=== PATIENT | female | born 1995 | race African-American/Black ===

== ENCOUNTER 2017-03-24 15:36 | Emergency (ER) | payer SELFPAY ==
--- NOTE | 2017-03-24 15:55 | ER Document Report ---
ED General - General Chief Complaint: Vaginal Bleeding Stated Complaint: ABDOMINAL PAIN,VAGINAL BLEEDING Time Seen by Provider: 03/24/17 15:54 Mode of Arrival: Ambulatory Information source: Patient Notes: 21-year-old female 1 para 0 approximately for 5 weeks presents with complaints of vaginal spotting with mild cramping. pt has been taking prenatals, denies any fevers or chills ,denies any large clots TRAVEL OUTSIDE OF THE [place] IN LAST 30 DAYS: No - HPI Onset: Yesterday Onset/Duration: Sudden Quality of pain: Cramping Severity: Mild Pain Level: 1 Associated symptoms: None Exacerbated by: Denies Relieved by: Denies Similar symptoms previously: No Recently seen / treated by doctor: No - Related Data Allergies/Adverse Reactions: No Known Allergies Allergy (Unverified 03/24/17 15:43) Past Medical History - Social History Smoking Status: Never Smoker Cigarette use (# per day): No Chew tobacco use (# tins/day): No Smoking Education Provided: No Family History: Reviewed & Not Pertinent Renal/ Medical History: Denies: Hx Peritoneal Dialysis Review of Systems - Review of Systems Notes: REVIEW OF SYSTEMS: CONSTITUTIONAL : Denies fever, chills, or sweats. Denies recent illness. EENT: Denies eye, ear, throat, or mouth pain or symptoms. Denies nasal or sinus congestion or discharge. Denies throat, tongue, or mouth swelling or difficulty swallowing. CARDIOVASCULAR: Denies chest pain. Denies palpitations or racing or irregular heart beat. Denies ankle edema. RESPIRATORY: Denies cough, cold, or chest congestion. Denies shortness of breath, difficulty breathing, or wheezing. GASTROINTESTINAL: Denies abdominal pain or distention. Denies nausea, vomiting , or diarrhea. Denies blood in vomitus, stools, or per rectum. Denies black, tarry stools. Denies constipation. GENITOURINARY: Denies difficulty urinating, painful urination, burning, frequency, blood in urine, or discharge. FEMALE GENITOURINARY: admits to vaginal bleeding MUSCULOSKELETAL: Denies back or neck pain or stiffness. Denies joint pain or swelling. SKIN: Denies rash, lesions or sores. HEMATOLOGIC : Denies easy bruising or bleeding. LYMPHATIC: Denies swollen, enlarged glands. NEUROLOGICAL: Denies confusion or altered mental status. Denies passing out or loss of consciousness. Denies dizziness or lightheadedness. Denies headache. Denies weakness or paralysis or loss of use of either side. Denies problems with gait or speech. Denies sensory loss, numbness, or tingling. Denies seizures. PSYCHIATRIC: Denies anxiety or stress. Denies depression, suicidal ideation, or homicidal ideation. ALL OTHER SYSTEMS REVIEWED AND NEGATIVE. PHYSICAL EXAMINATION: GENERAL: Well-appearing, well-nourished and in no acute distress. HEAD: Atraumatic, normocephalic. EYES: Pupils equal round and reactive to light, extraocular movements intact, conjunctiva are normal. ENT: Nares patent, oropharynx clear without exudates. Moist mucous membranes. NECK: Normal range of motion, supple without lymphadenopathy LUNGS: Breath sounds clear to auscultation bilaterally and equal. No wheezes rales or rhonchi. HEART: Regular rate and rhythm without murmurs ABDOMEN: Soft, nontender, nondistended abdomen. No guarding, no rebound. No masses appreciated. Female : deferred Musculoskeletal: Normal range of motion, no pitting or edema. No cyanosis. NEUROLOGICAL: Cranial nerves grossly intact. Normal speech, normal gait. Normal sensory, motor exams PSYCH: Normal mood, normal affect. SKIN: Warm, Dry, normal turgor, no rashes or lesions noted. Dictation was performed using [employer] voice recognition software Physical Exam - Vital signs Vitals: Temp Pulse Resp BP Pulse Ox 98.3 F 74 16 108/72 98 03/24/17 15:43 03/24/17 15:43 03/24/17 15:43 03/24/17 15:43 03/24/17 15:43 Course - Re-evaluation Re-evalutation: 03/24/17 16:06 Physical examination was quite benign, patient defers a pelvic, lab work ultrasound pending 03/24/17 17:05 pts hcg is negative, she is not . 03/24/17 18:17 Ultrasound noted no acute abnormality patient otherwise is stable for discharge After performing a Medical Screening Examination, I estimate there is LOW risk for ACUTE APPENDICITIS, BOWEL OBSTRUCTION, ACUTE CHOLECYSTITIS, PERFORATED DIVERTICULITIS, INCARCERATED HERNIA, PANCREATITIS, PELVIC INFLAMMATORY DISEASE, PERFORATED ULCER, ECTOPIC , or TUBO-OVARIAN ABSCESS, thus I consider the discharge disposition reasonable. Also, there is no evidence or peritonitis , sepsis, or toxicity. I have reevaluated this patient multiple times and no significant life threatening changes are noted. The patient and I have discussed the diagnosis and risks, and we agree with discharging home with close follow-up with the understanding that symptoms and presentations can change. We also discussed returning to the Emergency Department immediately if new or worsening symptoms occur. We have discussed the symptoms which are most concerning (e.g., bloody stool, fever, changing or worsening pain, vomiting) that necessitate immediate return. - Vital Signs Vital signs: Temp Pulse Resp BP Pulse Ox 98.3 F 74 16 108/72 98 03/24/17 15:43 03/24/17 15:43 03/24/17 15:43 03/24/17 15:43 03/24/17 15:43 - Laboratory Result Diagrams: 03/24/17 16:07 03/24/17 16:07 - Diagnostic Test Radiology reviewed: Image reviewed, Reports reviewed - no acute abnormality Discharge - Discharge Clinical Impression: Vaginal bleeding, Pelvic pain Condition: Stable Disposition: HOME, SELF-CARE Instructions: Pelvic Pain ([facility]) Additional Instructions: Follow up with your physician tomorrow for further care or return to the ED IMMEDIATELY if symptoms worsen or new concerns occur. If you cannot afford to follow up with your primary care physician a list of low cost clinics have been provided at the end of your discharge papers as well.
[2017-03-24 16:23] LABS: HEMOGLOBIN 12.5 g/dL (12.0-15.5); HGB HCT DIFFERENCE 0.5; MEAN CORPUSCULAR HEMOGLOBIN 29.9 pg (27.0-33.4); MEAN CORPUSCULAR HGB CONC 33.9 g/dL (32.0-36.0); MEAN CORPUSCULAR VOLUME 88 fl (80-97); RED CELL DISTRIBUTION WIDTH 13.2 % (11.5-14.0); WHITE BLOOD COUNT 5.2 10^3/uL (4.0-10.5)
[2017-03-24 16:42] LABS: ALANINE AMINOTRANSFERASE 23 U/L (5-35); ALBUMIN 4.2 g/dL (3.7-5.6); ALKALINE PHOSPHATASE 87 U/L (50-135); ANION GAP 12 (5-19); ASPARTATE AMINO TRANSFERASE 18 U/L (5-30); BILIRUBIN,DIRECT 0.3 mg/dL (0.0-0.4); BILIRUBIN,TOTAL 0.8 mg/dL (0.2-1.3); BLOOD UREA NITROGEN 10 mg/dL (7-20); CARBON DIOXIDE 25 mmol/L (22-30); CHLORIDE 103 mmol/L (98-107); CREATININE RESULT 0.71 mg/dL (0.52-1.25); GLUCOSE 84 mg/dL (75-110); POTASSIUM 4.1 mmol/L (3.6-5.0); SODIUM 139.6 mmol/L (137-145); TOTAL PROTEIN 7.4 g/dL (6.3-8.2)
[2017-03-24 16:45] LABS: BASOPHILS % (MANUAL) 0 % (0-2); EOSINOPHILS % (MANUAL) 0 % (0-6); LYMPHOCYTES % (MANUAL) 24 % (13-45); TOTAL CELLS COUNTED 100
[2017-03-24 16:46] LABS: RBC MORPHOLOGY COMMENT NORMO-CYTIC/CHROMIC
--- NOTE | 2017-03-24 18:03 | RADIOLOGY REPORT (SQ) ---
EXAM DESCRIPTION: U/S NON-OB PELVIS TV W/O DOP COMPLETED DATE/TIME: 03/24/2017 5:10 pm REASON FOR STUDY: vag bleed COMPARISON: None. TECHNIQUE: Dynamic and static grayscale images acquired of the pelvis via transvaginal approach and recorded on PACS. Additional selected color Doppler and spectral images recorded. LIMITATIONS: None. FINDINGS: UTERUS: Contour normal. No mass. ENDOMETRIAL STRIPE: No focal or generalized thickening. No masses. CERVIX: No nabothian cysts. RIGHT OVARY: No abnormal masses. RIGHT OVARY DOPPLER: Normal arterial vascular flow without evidence for torsion. LEFT OVARY: No abnormal masses. LEFT OVARY DOPPLER: Normal arterial vascular flow without evidence for torsion. FREE FLUID: None noted. OTHER: No other significant finding. MEASUREMENTS: UTERUS: 8.2 x 6.0 x 4.3 cm ENDOMETRIAL STRIPE: 9.6 mm RIGHT OVARY: 2.9 x 2.7 x 2.3 cm LEFT OVARY: 2.4 x 2.6 x 1.5 cm IMPRESSION: NORMAL TRANSVAGINAL PELVIC ULTRASOUND. TECHNICAL DOCUMENTATION: JOB ID: [id number] 9501[employer]- All Rights Reserved
[2017-03-24 18:28] VITALS: BP 119/77
== END 2017-03-24 18:20 | disposition home or self-care (01) ==
LOC: ER 15:36
DX: N93.8 Other specified abnormal uterine and vaginal bleeding (principal); R10.2 Pelvic and perineal pain; Z32.02 Encounter for pregnancy test, result negative
CPT/HCPCS: 36415; 76830; 80053; 84702; 85025; 86900; 86901; 99284

== ENCOUNTER 2017-03-25 02:13 | Emergency (ER) | payer BC ==
[2017-03-25 02:23] VITALS: BP 116/76
--- NOTE | 2017-03-25 03:59 | ER Document Report ---
ED GI/ - General Mode of Arrival: Ambulatory Information source: Patient TRAVEL OUTSIDE OF THE [place] IN LAST 30 DAYS: No - General Chief Complaint: Abdominal Pain Stated Complaint: ABDOMINAL PAIN Time Seen by Provider: 03/25/17 03:39 Notes: Patient is a 21 year old female presenting to the emergency department for vaginal bleeding and pelvic pain. Patient states her bleeding and cramping was onset yesterday at 16:00. Patient was seen on 03/24/2017 and discharged at 18: 20 for the same. At this visit the patient had a negative HCG quant. Patient states she had a positive [facility] on [facility]. Patient continues to have abdominal cramps which she states are worse than her normal menstrual period cramps. Patient's last menstrual period was . Patient has no known drug allergies. (OPAL LAW) - Related Data Allergies/Adverse Reactions: No Known Allergies Allergy (Verified 03/25/17 02:17) Past Medical History - General Information source: Patient - Social History Smoking Status: Never Smoker Cigarette use (# per day): No Chew tobacco use (# tins/day): No Smoking Education Provided: No Frequency of alcohol use: None Drug Abuse: None Family History: None Patient has suicidal ideation: No Patient has homicidal ideation: No - Medical History Medical History: Negative Surgical Hx: Negative Review of Systems - Review of Systems Constitutional: No symptoms reported EENT: No symptoms reported Cardiovascular: No symptoms reported Respiratory: No symptoms reported Gastrointestinal: See HPI, Abdominal pain Genitourinary: No symptoms reported Female Genitourinary: See HPI, Last menstrual period - 02/16/2017, Vaginal bleeding Musculoskeletal: No symptoms reported Skin: No symptoms reported Hematologic/Lymphatic: No symptoms reported Neurological/Psychological: No symptoms reported -: Yes All other systems reviewed and negative Physical Exam - Vital signs Interpretation: Normal - Vital signs Vitals: Temp Pulse Resp BP Pulse Ox 98.8 F 75 16 116/76 98 03/25/17 02:17 03/25/17 02:17 03/25/17 02:17 03/25/17 02:03/25/17 02:17 - Notes Notes: GENERAL: Alert, interacts well. No acute distress. HEAD: Normocephalic, atraumatic. EYES: Appear normal. Pupils equal, round, and reactive to light. ENT: Moist mucus membranes, tongue midline. NECK: Full range of motion. Supple. Trachea midline. LUNGS: Clear to auscultation bilaterally, no wheezes, rales, or rhonchi. No respiratory distress. HEART: Regular rate and rhythm. No murmurs, gallops, or rubs. ABDOMEN: Soft, non-tender. Non-distended. Normal bowel sounds. EXTREMITIES: Moves all 4 extremities spontaneously. Normal strength. No edema. NEUROLOGICAL: Alert and oriented x3. Normal speech. No focal neurological deficits. GCS 15. PSYCH: Normal affect, normal mood. SKIN: Warm, dry, normal turgor. No rashes or lesions noted. (OPAL LAW) - Vital Signs Vital signs: Temp Pulse Resp BP Pulse Ox 98.8 F 75 16 116/76 98 03/25/17 02:17 03/25/17 02:17 03/25/17 02:17 03/25/17 02:17 03/25/17 02:17 Discharge - Discharge Clinical Impression: Pelvic pain, Vaginal bleeding Disposition: HOME, SELF-CARE Additional Instructions: Pelvic Pain: There are many causes of pain in the pelvic area. The cause could be the tubes, ovaries, uterus, intestines, appendix, pelvic muscles and connective tissue, or the urinary tract. The cause of your pelvic pain is not clear. However, it seems safe to treat you outside the hospital. If the pain sounds like a temporary problem, we sometimes wait to see if it goes away. Other patients may need additional tests, such as pelvic ultrasound or cultures. Conditions may change. Call us or come back for reexamination if any problems occur, such as: (1) Pain that becomes more severe, steady, or becomes concentrated in one specific area. Also, pain that is more severe with movement or coughing. (2) Vomiting that persists or becomes more frequent. (3) Blood in the vomitus, urine, or bowel movements. Blood in the stool may have a tarry or black appearance. (4) Shaking chills or fever greater than 100 degrees. (5) The abdomen becomes more distended or swollen. //////////////////////////////////////////////////////////////////////////////// //////////////////////////////////////////////////////////////////////////////// //////////////// Your test from yesterday showed no hormone level detected. Your ultrasound showed normal ovaries, no , and in endometrial stripe of 9.6 mm, this is consistent with a menstrual period. A polymerase chain reaction test will be done on the urine that was collected looking for infections that may be contributing to your discomfort. If there are any positive results, you will be contacted. For now you should take Tylenol and ibuprofen or Aleve for your discomfort. [facility] for recheck if not improving. Referrals: [facility] [Provider Group] - Follow up as needed Scribe Attestation: 03/25/17 04:19 I personally performed the services described in the documentation, reviewed and edited the documentation which was dictated to the scribe in my presence, and it accurately records my words and actions. (CRISTINA HERNANDEZ) Scribe Documentation - Scribe Written by Scribe:: Opal Law, Cay[place]ismael 03/25/2017 16:30 acting as scribe for :: Sravani
[2017-03-25] MEDS ORDERED: KETOROLAC TROMETHAMINE INJ/PF 30 MG/1 ML SDV IV ONE (04:12)
[2017-03-25 06:35] LABS: CHLAM PCR NOT DETECTED (NOT DETECT)
== END 2017-03-25 04:52 | disposition home or self-care (01) ==
LOC: ER 02:13
DX: N93.8 Other specified abnormal uterine and vaginal bleeding (principal); R10.2 Pelvic and perineal pain
CPT/HCPCS: 99283; 96374; 87491; 87591; J1885

== ENCOUNTER 2017-07-23 19:36 | Emergency (ER) | payer SELFPAY ==
[2017-07-23] MEDS ORDERED: MAG HYDROX/AL HYDROX/SIMETH SUSP 30 ML UDCUP PO ONE (23:21)
[2017-07-23] MEDS ORDERED: LIDOCAINE 2% VISCOUS SOLN 20 ML UDCUP PO ONE (23:21)
[2017-07-23] MEDS ORDERED: METOCLOPRAMIDE HCL ORAL SOLN 10 MG/10 ML UDCUP PO ONE (23:21)
--- NOTE | 2017-07-23 23:22 | ER Document Report ---
ED Medical Screen (RME) - General Chief Complaint: Chest Pain Stated Complaint: CHEST PAIN Time Seen by Provider: 07/23/17 23:19 Notes: Patient is a 22-year-old female that comes emergency department for chief complaint of chest pain. Symptoms started about 5 hours ago while she was lying down. She states it feels sharp, she can feel it over the left side of her mid chest, she states that she actually gets these symptoms intermittently. She is unsure if she was short of breath. She states she feels a little bit nauseated with it. She smokes occasionally. No oral contraceptive. No daily medications. No trauma. TRAVEL OUTSIDE OF THE [place] IN LAST 30 DAYS: No - Related Data Allergies/Adverse Reactions: No Known Allergies Allergy (Verified 03/25/17 02:17) Past Medical History - Social History Chew tobacco use (# tins/day): No Frequency of alcohol use: Social Drug Abuse: None Renal/ Medical History: Denies: Hx Peritoneal Dialysis Physical Exam - Vital signs Vitals: Temp Pulse Resp BP Pulse Ox 98.5 F 90 20 113/63 100 07/23/17 20:20 07/23/17 20:20 07/23/17 20:20 07/23/17 20:20 07/23/17 20:20 - Respiratory Respiratory status: No respiratory distress Breath sounds: Normal. No: Wheezing Course - Vital Signs Vital signs: Temp Pulse Resp BP Pulse Ox 98.3 F 64 18 102/54 L 100 07/23/17 23:10 07/23/17 23:10 07/23/17 23:10 07/23/17 23:10 07/23/17 23:10
--- NOTE | 2017-07-24 00:44 | RADIOLOGY REPORT (SQ) ---
EXAM DESCRIPTION: CHEST PA/LAT CLINICAL HISTORY: chest pain COMPARISON: None. FINDINGS: Frontal and lateral views of the chest. The cardiomediastinal silhouette has normal size and contour. No consolidation, pneumothorax, or pleural effusion. No displaced rib fractures identified. Upper abdominal soft tissues are unremarkable. IMPRESSION: 1. No acute pulmonary process identified.
--- NOTE | 2017-07-24 00:54 | ER Document Report ---
ED General - General Chief Complaint: Chest Pain Stated Complaint: CHEST PAIN Time Seen by Provider: 07/23/17 23:19 Mode of Arrival: Ambulatory Information source: Patient Notes: This is a 22-year-old female presents to the emergency room with on and off chest pain associated with palpitations. Patient states she has experienced this on and off for the past several years. She had an episode tonight. She denies any significant shortness of breath. She does have a family history of cystic fibrosis and sarcoidosis. She denies any allergies. She is not on any medicines. She does smoke a half pack per day TRAVEL OUTSIDE OF THE [place] IN LAST 30 DAYS: No - HPI Onset: Other - On and off for several years Onset/Duration: Gradual Quality of pain: No pain Severity: None Pain Level: Denies Associated symptoms: Other - Palpitations. denies: Chest pain, Fever, Shortness of breath Exacerbated by: Denies Relieved by: Denies Similar symptoms previously: Yes Recently seen / treated by doctor: No - Related Data Allergies/Adverse Reactions: No Known Allergies Allergy (Verified 03/25/17 02:17) Past Medical History - General Information source: Patient - Social History Smoking Status: Current Every Day Smoker Cigarette use (# per day): Yes - Half a pack per day Chew tobacco use (# tins/day): No Smoking Education Provided: Yes Frequency of alcohol use: Social Drug Abuse: None Lives with: Family Family History: None Patient has suicidal ideation: No Patient has homicidal ideation: No - Medical History Medical History: Negative Renal/ Medical History: Denies: Hx Peritoneal Dialysis Surgical Hx: Negative Review of Systems - Review of Systems Constitutional: denies: Chills, Fever EENT: No symptoms reported Cardiovascular: See HPI Respiratory: No symptoms reported Gastrointestinal: No symptoms reported Genitourinary: No symptoms reported Female Genitourinary: No symptoms reported Musculoskeletal: No symptoms reported Skin: No symptoms reported Hematologic/Lymphatic: No symptoms reported Neurological/Psychological: No symptoms reported Physical Exam - Vital signs Vitals: Temp Pulse Resp BP Pulse Ox 98.5 F 90 20 113/63 100 07/23/17 20:20 07/23/17 20:20 07/23/17 20:20 07/23/17 20:20 07/23/17 20:20 Notes: Physical exam: GENERAL: 3-year-old female, alert and oriented 3, no acute distress HEAD: Atraumatic, normocephalic. EYES: Pupils equal round and reactive to light, extraocular movements intact, sclera anicteric, conjunctiva are normal. ENT: TMs normal, nares patent, oropharynx clear without exudates. Moist mucous membranes. NECK: Normal range of motion, supple without obvious mass or JVD. LUNGS: Breath sounds clear to auscultation bilaterally and equal. No wheezes rales or rhonchi. HEART: Regular rate and rhythm without murmurs, rubs or gallops. ABDOMEN: Soft, normoactive bowel sounds. No tenderness to palpation. No guarding, no rebound. No masses appreciated. EXTREMITIES: Normal range of motion, no pitting or edema. No clubbing or cyanosis. NEUROLOGICAL: Cranial nerves II through XII grossly intact. Normal speech, moving all extremities. PSYCH: Normal mood, normal affect. SKIN: Warm, Dry, normal turgor, no rashes or lesions noted. Course - Vital Signs Vital signs: Temp Pulse Resp BP Pulse Ox 98.3 F 64 16 126/70 H 99 07/23/17 23:10 07/24/17 00:59 07/24/17 00:59 07/24/17 00:59 07/24/17 00:59 - Diagnostic Test Radiology reviewed: Image reviewed, Reports reviewed - Chest x-ray shows no infiltrates or effusions - EKG Interpretation by Me Rate: Normal Rhythm: NSR - EKG shows normal sinus rhythm with a ventricular rate of 81, no acute ST-T wave changes Discharge - Discharge Clinical Impression: Palpitations Condition: Stable Disposition: HOME, SELF-CARE Instructions: Palpitations (Irregular or Rapid Heartrate) ([facility]) Additional Instructions: As we discussed, your EKG looked quite good today. The chest x-ray was clear. There is no evidence of sarcoidosis. I would like you to follow-up with the construction accountant for outpatient echo (this is an ultrasound of the heart). Otherwise follow-up with your primary care doctor. Thank you for choosing [facility] for your care. The examination and treatment you have received in the Emergency Department today has been rendered on an emergency basis only and is not intended to be a substitute for complete medical care. You should contact your doctor as it is important that she/he examine you for any new or remaining problems. If your problem worsens or new symptoms appear and you are unable to arrange prompt follow-up care, return to the Emergency Department. Specific signs to look out for: Worsening chest pain, worsening palpitations, feeling faint Any other instructions: See the number for the construction accountant (Dr. Maxwell) for outpatient follow-up. Primary Care Doctor's affiliated with [facility]: If you do not have a primary care doctor or you are unable to get an appointment during that time, you can try one of the doctor's below. These are internal medicine doctor's that have admitting priveledges to the hospital ( they will see you both in the office as well as in this hospital if you are ever hospitalized here). Dr. Cuba Ochoa [facility] [address], [place] [address] [phone] Dr Balbuena Address: [address] [place] [address] Dr Tee Address: [address] [place] [address] , [place] [address] If you don't have insurance: follow-up at the [facility] which is a free clinic. [address], [place] [address] [phone] Referrals: FARZAD MAXWELL MD [ACTIVE STAFF] - Follow up as needed (This is the number the construction accountant: I want you to call for the next available appointment for an outpatient echo (ultrasound of the heart).)
[2017-07-24 01:00] VITALS: BP 126/70
--- NOTE | 2017-07-24 08:51 | EKG REPORT ---
SEVERITY:- BORDERLINE ECG - SINUS RHYTHM BORDERLINE T ABNORMALITIES, ANTERIOR LEADS : Confirmed by: Allyson Arteaga MD 24-Jul-2017 08:50:50
== END 2017-07-24 00:59 | disposition home or self-care (01) ==
LOC: ER 19:36
DX: R00.2 Palpitations (principal); R07.9 Chest pain, unspecified; F17.210 Nicotine dependence, cigarettes, uncomplicated
CPT/HCPCS: 93005; 99285; 81025; 71046; 93010; J3490

== ENCOUNTER 2017-08-27 18:05 | Emergency (ER) | payer OTHER, MEDICAID ==
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
[2017-08-27] MEDS ORDERED: LIDOCAINE 5% (700 MG) TRANSDERMAL ADH..PATCH TP ONE (20:07)
[2017-08-27] MEDS ORDERED: IBUPROFEN 600 MG TABLET PO ONE (20:08)
[2017-08-27 20:32] VITALS: BP 110/68
== END 2017-08-27 20:21 | disposition home or self-care (01) ==
LOC: ER 18:05
DX: M54.2 Cervicalgia (principal); M25.512 Pain in left shoulder; M54.89 Other dorsalgia; R10.2 Pelvic and perineal pain; V49.50XA Passenger injured in collision with unspecified motor vehicles in traffic accident, initial encounter; F17.200 Nicotine dependence, unspecified, uncomplicated
CPT/HCPCS: 99283

== ENCOUNTER 2019-12-15 20:01 | Outpatient (CLI) | payer MEDICAID ==
[2019-12-15 20:35] LABS: BACTERIA (WET MOUNT) 4+ BACTERIA SEEN; EPITHELIALS (WET MOUNT) 3+ EPITHELIALS SEEN; T.VAGINALIS (WET MOUNT) NO TRICHOMONAS SEEN; WBCS (WET MOUNT) 2+ WBCS SEEN; YEAST (WET MOUNT) YEAST SEEN
[2019-12-15 20:44] LABS: APPEARANCE,URINE SLIGHTLY-CLOUDY; BILIRUBIN,URINE NEGATIVE (NEGATIVE); COLOR,URINE YELLOW; GLUCOSE, URINE NEGATIVE (NEGATIVE); KETONES,URINE NEGATIVE (NEGATIVE); LEUKOCYTE ESTERASE,URINE TRACE (NEGATIVE); NITRITE,URINE NEGATIVE (NEGATIVE); PROTEIN,URINE NEGATIVE (NEGATIVE); URINE SPECIFIC GRAVITY 1.023
[2019-12-15] MEDS ORDERED: FLUCONAZOLE 100 MG TABLET PO ONE (20:48)
[2019-12-15] MEDS ORDERED: FLUCONAZOLE 100 MG TABLET ONE (20:50)
[2019-12-15 20:53] LABS: URINE AMPHETAMINES SCREEN NEGATIVE; URINE BARBITURATES SCREEN NEGATIVE; URINE BENZODIAZEPINES SCREEN NEGATIVE; URINE COCAINE SCREEN NEGATIVE; URINE MARIJUANA (THC) SCREEN NEGATIVE; URINE METHADONE SCREEN NEGATIVE; URINE PHENCYCLIDINE SCREEN NEGATIVE
--- NOTE | 2019-12-15 20:53 | RADIOLOGY REPORT (SQ) ---
EXAM DESCRIPTION: US LIMITED COMPLETED DATE/TME: 12/15/2019 00:00 CLINICAL HISTORY: 24 years, Female, cervical length, dating US COMPARISON: None. FINDINGS: Single live intrauterine fetus. Current heart rate of 150 BPM. Vertex position. Cervix is closed. 2.4 cm in size. Normal amount of amniotic fluid. DAWN of 13.6 cm. Gestational age data: BPD: 6.36 cm: 25 weeks and five days. Head circumference: 23.8 cm: 25 weeks and six days. Abdominal circumference: 22.66 cm: 27 weeks zero days. Femur length: 5.04 cm: 27 weeks zero days. Estimated weight: 1000 g. Placenta is anterior without previa or abruption. IMPRESSION: Single live intrauterine fetus. Gestational age per ultrasound is 26 weeks and three days. Gestational age by last menstrual period is 26 weeks and five days. BERNA by ultrasound is 03/19/2020. Limited study. No acute findings.
[2019-12-15 22:07] LABS: CHLAM PCR NOT DETECTED (NOT DETECT)
== END 2019-12-15 22:22 | disposition home or self-care (01) ==
LOC: LC 20:01
PROVIDERS: ATTEND Student in an Organized Health Care Education/Training Program
DX: O26.892 Other specified pregnancy related conditions, second trimester (principal); R10.9 Unspecified abdominal pain; Z3A.26 26 weeks gestation of pregnancy
CPT/HCPCS: 76815; 80307; 81001; 87210; 87491; 87591

== ENCOUNTER 2020-01-24 18:44 | Outpatient (CLI) | payer SELFPAY ==
[2020-01-24 19:48] LABS: APPEARANCE,URINE SLIGHTLY-CLOUDY; BILIRUBIN,URINE NEGATIVE (NEGATIVE); COLOR,URINE AMBER; GLUCOSE, URINE NEGATIVE (NEGATIVE); KETONES,URINE 80 mg/dL (NEGATIVE); LEUKOCYTE ESTERASE,URINE NEGATIVE (NEGATIVE); NITRITE,URINE NEGATIVE (NEGATIVE); PROTEIN,URINE 30 mg/dL (NEGATIVE); URINE SPECIFIC GRAVITY 1.027
[2020-01-24 20:07] LABS: URINE AMPHETAMINES SCREEN NEGATIVE; URINE BARBITURATES SCREEN NEGATIVE; URINE BENZODIAZEPINES SCREEN NEGATIVE; URINE COCAINE SCREEN NEGATIVE; URINE MARIJUANA (THC) SCREEN NEGATIVE; URINE METHADONE SCREEN NEGATIVE; URINE PHENCYCLIDINE SCREEN NEGATIVE
--- NOTE | 2020-01-24 20:55 | RADIOLOGY REPORT (SQ) ---
EXAM DESCRIPTION: Right upper quadrant abdominal ultrasound. CLINICAL HISTORY: 24 years Female; Ruq pain TECHNIQUE: Abdominal ultrasound was performed. COMPARISON: None. FINDINGS: Pancreas: The proximal head and the body the pancreas are unremarkable. Tail was not well seen. Liver: The liver measures 14.4 cm in length and the echotexture is within normal limits. Portal vein is patent with hepatopedal flow. Gallbladder wall is 1.6 mm. No stones. No sonographic Alexandre's.. Gallbladder: normal with no gallstones or sonographic evidence for acute cholecystitis. Common bile duct: 2.6 mm. Right kidney: The kidney measures 8.5 x 5.6 x 4.3 cm. No hydronephrosis. Blood flow is seen throughout.. Aorta:Visualized portions are within normal limits. IVC: Visualized portions are within normal limits. Ascites: No free fluid. IMPRESSION: Unremarkable right upper quadrant ultrasound.
--- NOTE | 2020-01-24 20:55 | RADIOLOGY REPORT (SQ) ---
Obstetric ultrasound: 01/24/2020 7:51 PM CDT HISTORY: 24-year-old female with right upper quadrant abdominal pain. TECHNIQUE: Multiple grayscale and color Doppler images of the pelvis were obtained transabdominally and transvaginally. COMPARISON: ultrasound from 12/15/2019 and 01/24/2020 FINDINGS: A single intrauterine gestation is seen, which is cephalic in position. The placenta is cephalic in location, and free of internal os of the cervix. The estimated heart rate is approximately 169 bpm. The cervix measures at least 2.0 cm in length. The estimated weight is approximately 1959 g +/- 15%. The fetus overall measures at the 1250. The DAWN measures 17.5 cm, with the deepest vertical pocket of approximately 5.8 cm. The fetus measures at 32 weeks and 1 day(s) by AUA, consistent with an estimated due date of 03/14/2020. Evaluation of the head including measurements with limited by positioning of the fetus. The following measurements were obtained: BPD: 8.2 cm, consistent with 32 weeks and 6 day(s). HC: 30.3 cm, consistent with 33 weeks and 5 day(s). AC: 27.1 cm, consistent with 31 weeks and 1 day(s). FL: 6.7 cm, consistent with 33 weeks and 5 day(s). IMPRESSION: A single, live intrauterine gestation is seen which is currently cephalic in position. The fetus measures at 32 weeks and 1 day(s) by AUA, consistent with an estimated due date of 03/14/2020. 2. The cervix measures 2 cm in length transvaginally. Interval follow-up with an obstetric care provider is recommended.
[2020-01-24 21:09] LABS: ABSOLUTE MONOCYTES (AUTO) 0.5 10^3/uL (0.1-1.4); EOSINOPHILS % (AUTO) 0.3 % (0-6); HEMOGLOBIN 11.6 g/dL (12.0-15.5); TOTAL CELLS COUNTED % (AUTO) 100 %
[2020-01-24 21:25] LABS: ABSOLUTE NEUT (AUTO) 4.2 10^3/uL (1.7-8.2); ALBUMIN 3.6 g/dL (3.5-5.0); ALKALINE PHOSPHATASE 87 U/L (38-126); ASPARTATE AMINO TRANSFERASE 26 U/L (14-36); BASOPHILS % (AUTO) 0.3 % (0-2); BILIRUBIN,TOTAL 0.6 mg/dL (0.2-1.3); BLOOD UREA NITROGEN 7 mg/dL (7-20); CALCIUM 9.3 mg/dL (8.4-10.2); GLUCOSE 78 mg/dL (75-110); HEMATOCRIT 33.6 % (36.0-47.0); LYMPHOCYTES % (AUTO) 16.9 % (13-45); MEAN CORPUSCULAR HEMOGLOBIN 32.1 pg (27.0-33.4); MEAN CORPUSCULAR HGB CONC 34.5 g/dL (32.0-36.0); MEAN CORPUSCULAR VOLUME 93 fl (80-97); MONOCYTES % (AUTO) 9.4 % (3-13); PLATELET COUNT 226 10^3/uL (150-450); POTASSIUM 3.7 mmol/L (3.6-5.0); RED BLOOD COUNT 3.61 10^6/uL (3.72-5.28); RED CELL DISTRIBUTION WIDTH 13.2 % (11.5-14.0); SEGMENTED NEUTROPHILS % (AUTO) 73.1 % (42-78); TOTAL PROTEIN 6.8 g/dL (6.3-8.2); WHITE BLOOD COUNT 5.8 10^3/uL (4.0-10.5)
[2020-01-24 21:30] LABS: ANION GAP 5 (5-19); CARBON DIOXIDE 27 mmol/L (22-30); CHLORIDE 102 mmol/L (98-107)
[2020-01-24] MEDS ORDERED: BETAMET ACET/BETAMET NA INJ 6 MG/1 ML IM PRN (21:44)
[2020-01-24] MEDS ORDERED: DEXTROSE 5%-LACTATED RINGERS 1,000 ML IV PRN ×2 (21:47→21:48)
[2020-01-24] MEDS ORDERED: BETAMET ACET/BETAMET NA INJ 6 MG/1 ML ONE ×2 (21:57→22:11)
--- NOTE | 2020-01-25 00:37 | Non Stress Test Report ---
Non Stress Test Datetime Report Generated by CPN: 01/25/2020 00:36 DEMOGRAPHIC EGA NST: 32.1 INDICATION Indication for Study (NST) Other: LC contractions MONITORING Monitor Explained: Monitor Explained; Test Explained; Patient Verbalized Understanding; Other Time on Monitor: 01/24/2020 20:40 Time off Monitor: 01/25/2020 00:00 NST Duration: 200 NST INTERVENTIONS NST Interventions: PO Hydration; IV Fluids Physician Notified NST: Dr. Velásquez BABY A: [id number] BABY A Movement : Present Contraction Frequency : irregular FHR Baseline : 145 Accelerations : 15X15 Decelerations : None Variability : Moderate 6-25bpm NST Review: Meets Criteria for Reactive NST NST Review and Verified By : Maurice Cosby RN NST REPORT Report Trigger: Send Report
[2020-01-26 05:38] LABS: HEPATITIS C VIRUS AB <0.1 s/co ratio (0.0-0.9)
[2020-01-26 07:14] LABS: HEPATITS B SURFACE ANTIGEN Negative (Negative)
== END 2020-01-25 00:34 | disposition home or self-care (01) ==
LOC: LC 18:44
PROVIDERS: ATTEND Obstetrics & Gynecology
DX: O60.03 Preterm labor without delivery, third trimester (principal); Z3A.32 32 weeks gestation of pregnancy
CPT/HCPCS: 59025; 96372; 86900; 86901; 36415; 86850; 85025; 86762; 86592; 80053; 81001; 87340; 86701; 80307; 86803; 86804; 76805; 76705; 93976; J0702

== ENCOUNTER → 2020-01-25 | Outpatient (CLI) | payer SELFPAY ==
[~2020-01-25] MED LIST: BETAMET ACET/BETAMET NA INJ 6 MG/1 ML IM PRN; BETAMET ACET/BETAMET NA INJ 6 MG/1 ML ONE
== END ==
LOC: LC 21:29
PROVIDERS: ATTEND Obstetrics & Gynecology
DX: O60.03 Preterm labor without delivery, third trimester (principal); Z3A.32 32 weeks gestation of pregnancy
CPT/HCPCS: 96372; 59899; J0702